=== PATIENT | male | born 1985 | race Caucasian/White ===

== ENCOUNTER → 2017-01-02 | Outpatient (CLI) | payer OTHER | LOC: COL.RAD 13:21 | DX: M25.511 Pain in right shoulder (principal); M19.011 Primary osteoarthritis, right shoulder; M75.81 Other shoulder lesions, right shoulder | CPT/HCPCS: A9585; Q9967 ==

== ENCOUNTER → 2017-05-19 | Outpatient (CLI) | payer OTHER | LOC: COL.RAD 09:00 | DX: M19.011 Primary osteoarthritis, right shoulder (principal); M25.512 Pain in left shoulder | CPT/HCPCS: J3301; Q9967 ==